=== PATIENT | female | born 1975 | race Caucasian/White ===

== ENCOUNTER 2016-10-18 03:29 | Emergency (ER) | payer MEDICAID, OTHER ==
[~2016-10-18] VITALS: Ht 162.6 cm; Wt 71.5 kg
[2016-10-18 03:37] VITALS: Ht 162.6 cm; Wt 71.5 kg
[2016-10-18] MEDS ORDERED: SOD CHLORIDE 0.9% 1,000 ML IV STA (04:47)
[2016-10-18] MEDS ORDERED: morphine 4 MG/ML VIAL IV STA (04:47)
[2016-10-18] MEDS ORDERED: ONDANSETRON 4 MG INJ IV STA (04:47)
--- NOTE | 2016-10-18 04:59 | ERA ---
ER Documentation Chief Complaint Date/Time DATE: 10/18/16 TIME: 04:50 Chief Complaint epigastric pain since 2 hours ago (GENE HERCULES PA-C) HPI This is a 41-year-old female presenting with 8-10 hours of upper epigastric abdominal pain. Patient does describe one day of constipation. Usual bowel movements as once per day. Denies nausea, vomiting, diarrhea, inability to tolerate p.o., similar symptoms in the past, aggravating/relieving factors, taking medications to relieve the symptoms, personal or family medical history, sick contacts, recent travel, recent surgeries/antibiotic use. Vaccination status is up-to-date. Has no other complaints and describes no other associated manifestations. (GENE HERCULES PA-C) ROS All systems reviewed and are negative except as per history of present illness. (GENE HERCULES PA-C) Medications Home Meds Active Scripts Famotidine* (Pepcid*) 20 Mg Tablet, 20 MG PO BID for 4 Days, TAB Prov:GENE HERCULES PA-C 10/18/16 Reported Medications [None] No Conflict Check 01/12/12 Allergies Allergies: Coded Allergies: No Known Allergy (Unverified , 01/12/12) PMhx/Soc History of Surgery: No Anesthesia Reaction: No Hx Neurological Disorder: No Hx Respiratory Disorders: No Hx Cardiac Disorders: No Hx Miscellaneous Medical Probl: No (NO MEDICAL PROBLEMS ) Hx Alcohol Use: No Hx Substance Use: No Hx Tobacco Use: No Smoking Status: Never smoker (GENE HERCULES PA-C) Physical Exam Vitals (HARSHAL LITTLE PA-C) Physical Exam Const: Healthy-appearing. Well-nourished. Well-developed. No acute distress. Abd: Mild to moderate epigastric tenderness. Negative rovsings, psoas , obturator & murphys signs. No Mcburneys point tenderness. Normal bowl sounds auscultated in all 4 quadrants. No aortic / renal / iliac bruits appreciated. No abnormalities noted upon percussion of liver, spleen, or over the 4 abdominal quadrants. No hepatomegaly, splenomegaly, or enlarged abdominal aorta appreciated upon palpation. Abdomen non-distended and soft with no rebound or guarding. Back: No CVA tenderness. No midline or flank tenderness. Head: Normocephalic, Atraumatic. Eyes: Non-injected; No scleral erythema, discharge or foreign body. EOMI and ARYAN bilaterally. Ears: Normal External Ears, EACs clear, TM normal bilaterally without erythema. Nose: Normal nose without discharge, septal deviation, or sinus tenderness. Oral: No oral edema visualized. Mucous membranes moist and pink. Neck: No cervical lymphadenopathy, masses or goiter palpated. Trachea midline. Supple ~ No meningismus. Pulm: No dyspnea, stridor, tripoding or drooling. Good air movement. Clear to auscultation bilaterally. Cardio: Regular rate and rhythm; No murmurs, gallops or rubs auscultated. No JVD grossly observed. Radial and posterior tibial pulses 2+ bilaterally. Capillary refill less than 2 seconds. MS: Normal motor strength, normal tone with gross examination. Skin: No petechiae or rashes. No ulcer, induration, jaundice. Good turgor. Ext: No cyanosis, edema or palpable cord. Normal movement of all extremities grossly observed. Neur: Awake, alert and oriented x3. Neurovascularly intact bilaterally. Psych: Normal Mood and Affect. (GENE HERCULES PA-C) Results 24 hrs Laboratory Tests Test 10/18/16 05:00 10/18/16 05:01 10/18/16 05:06 Urine Color YELLOW Urine Clarity CLEAR Urine pH 6.0 Urine Specific [place] 1.018 Urine Ketones NEGATIVEmg/dL Urine Nitrite NEGATIVEmg/dL Urine Bilirubin NEGATIVEmg/dL Urine Urobilinogen NEGATIVEmg/dL Urine Leukocyte Esterase NEGATIVELeu/ul Urine Hemoglobin NEGATIVEmg/dL Urine Glucose NEGATIVEmg/dL Urine Total Protein NEGATIVEmg/dl White Blood Count 13.110^3/ul Red Blood Count 4.8410^6/ul Hemoglobin 14.2g/dl Hematocrit 43.2% Mean Corpuscular Volume 89.3fl Mean Corpuscular Hemoglobin 29.3pg Mean Corpuscular Hemoglobin Concent 32.9g/dl Red Cell Distribution Width 12.0% Platelet Count 20630^3/UL Mean Platelet Volume 11.5fl Neutrophils % 72.2% Lymphocytes % 18.5% Monocytes % 7.2% Eosinophils % 0.8% Basophils % 0.5% Nucleated Red Blood Cells % 0.0/100WBC Neutrophils # 9.510^3/ul Lymphocytes # 2.410^3/ul Monocytes # 1.010^3/ul Eosinophils # 0.110^3/ul Basophils # 0.110^3/ul Nucleated Red Blood Cells # 0.010^3/ul Prothrombin Time 11.7Sec Prothrombin Time Ratio 0.9 INR International Normalized Ratio 0.86 Activated Partial Thromboplast Time 29.7Sec Sodium Level 142mmol/L Potassium Level 4.3mmol/L Chloride Level 99mmol/L Carbon Dioxide Level 28mmol/L Anion Gap 19 Blood Urea Nitrogen 12mg/dl Creatinine 0.58mg/dl Glucose Level 94mg/dl Calcium Level 9.2mg/dl Total Bilirubin 0.1mg/dl Direct Bilirubin 0.00mg/dl Indirect Bilirubin 0.1mg/dl Aspartate Amino Transf (AST/SGOT) 44IU/L Alanine Aminotransferase (ALT/SGPT) 69IU/L Alkaline Phosphatase 132IU/L Total Protein 8.7g/dl Albumin 4.6g/dl Globulin 4.10g/dl Albumin/Globulin Ratio 1.12 Lipase 172U/L Bedside Urine pH (LAB) 7.0 Bedside Urine Protein (LAB) 1+ Bedside Urine Glucose (UA) Negative Bedside Urine Ketones (LAB) Negative Bedside Urine Blood Trace-intact Bedside Urine Nitrite (LAB) Negative Bedside Urine Leukocyte Esterase (L Negative Current Medications Medications (Trade) Dose Ordered Sig/Tim Route PRN Reason Start Time Stop Time Status Last Admin Dose Admin Sodium Chloride (NS) 1,000 ml @ 1,000 mls/hr Q1H STAT IV 10/18/16 04:47 10/18/16 05:46 DC 10/18/16 05:05 Morphine Sulfate (morphine) 4 mg ONCE STAT IV 10/18/16 04:47 10/18/16 04:50 DC 10/18/16 05:05 Ondansetron HCl (Zofran Inj) 4 mg ONCE STAT IV 10/18/16 04:47 10/18/16 04:50 DC 10/18/16 05:04 (HARSHAL LITTLE PA-C) Results 24 hrs Laboratory Tests Test 10/18/16 05:00 10/18/16 05:01 10/18/16 05:06 Urine Color YELLOW Urine Clarity CLEAR Urine pH 6.0 Urine Specific [place] 1.018 Urine Ketones NEGATIVEmg/dL Urine Nitrite NEGATIVEmg/dL Urine Bilirubin NEGATIVEmg/dL Urine Urobilinogen NEGATIVEmg/dL Urine Leukocyte Esterase NEGATIVELeu/ul Urine Hemoglobin NEGATIVEmg/dL Urine Glucose NEGATIVEmg/dL Urine Total Protein NEGATIVEmg/dl White Blood Count 13.110^3/ul Red Blood Count 4.8410^6/ul Hemoglobin 14.2g/dl Hematocrit 43.2% Mean Corpuscular Volume 89.3fl Mean Corpuscular Hemoglobin 29.3pg Mean Corpuscular Hemoglobin Concent 32.9g/dl Red Cell Distribution Width 12.0% Platelet Count 96440^3/UL Mean Platelet Volume 11.5fl Neutrophils % 72.2% Lymphocytes % 18.5% Monocytes % 7.2% Eosinophils % 0.8% Basophils % 0.5% Nucleated Red Blood Cells % 0.0/100WBC Neutrophils # 9.510^3/ul Lymphocytes # 2.410^3/ul Monocytes # 1.010^3/ul Eosinophils # 0.110^3/ul Basophils # 0.110^3/ul Nucleated Red Blood Cells # 0.010^3/ul Bedside Urine pH (LAB) 7.0 Bedside Urine Protein (LAB) 1+ Bedside Urine Glucose (UA) Negative Bedside Urine Ketones (LAB) Negative Bedside Urine Blood Trace-intact Bedside Urine Nitrite (LAB) Negative Bedside Urine Leukocyte Esterase (L Negative Current Medications Medications (Trade) Dose Ordered Sig/Tim Route PRN Reason Start Time Stop Time Status Last Admin Dose Admin Sodium Chloride (NS) 1,000 ml @ 1,000 mls/hr Q1H STAT IV 10/18/16 04:47 10/18/16 05:46 DC 10/18/16 05:05 Morphine Sulfate (morphine) 4 mg ONCE STAT IV 10/18/16 04:47 10/18/16 04:50 DC 10/18/16 05:05 Ondansetron HCl (Zofran Inj) 4 mg ONCE STAT IV 10/18/16 04:47 10/18/16 04:50 DC 10/18/16 05:04 (GENE HERCULES PA-C) Procedures/MDM 41-year-old overweight female with no past medical history being evaluated and worked up for epigastric abdominal discomfort as described in history and physical examination. Patient was given morphine 4 mg IV and Zofran 4 mg IV with relief of symptoms. The workup included CBC, CMP, urinalysis, urine , PT, PTT, and lipase. The current most likely diagnosis is epigastric pain of unknown etiology versus gastritis. The treatment plan will thus include outpatient Pepcid with close follow-up in the next 8-12 hours. At this time I do not suspect acute pancreatitis, cholangitis, myocardial/ Intestinal ischemia, pneumonia, hernia, or esophageal rupture. (GENE HERCULES PA-C) Medical decision making: This 41-year-old female presents with epigastric abdominal pain, patient has been evaluated for the same pain in 2010 and she reports that her pain is similar. I suspect gastritis, GERD versus ulcer disease. Patient's care was signed out to me by Gene Hercules PA-C. At this point patient's pain has been under control, she is feeling much better at this time. Her labs are unremarkable, there is a mild elevated white blood cell count at 13, LFTs, lipase, all normal. Patient will be given a prescription, as prescribed by [facility], Pepcid. No evidence of pancreatitis, dissection, acute coronary syndrome, acute hepatobiliary process, appendicitis, ovarian torsion, kidney stones, septic stones, UTI. (HARSHAL LITTLE PA-C) Departure Diagnosis: Primary Impression: Epigastric pain Condition: GENE Alvarez PA-C Oct 18, 2016 04:59 HARSHAL LITTLE PA-C Oct 18, 2016 09:31 pancreatitis, dissection, acute coronary syndrome, acute hepatobiliary process, appendicitis, ovarian torsion, kidney stones, septic stones, UTI. (HARSHAL LITTLE PA-C) Departure Diagnosis: Primary Impression: Epigastric pain Condition: GENE Alvarez PA-C Oct 18, 2016 04:59 HARSHAL LITTLE PA-C Oct 18, 2016 09:31
[2016-10-18 05:00] LABS: URINE BLOOD (Dip) POC Trace-intact (NEGATIVE)
[2016-10-18 06:01] LABS: BASOPHIL # 0.1 10^3/ul (0.0-0.1); BASOPHILS % 0.5 % (0.0-2.0); EOSINOPHILS # 0.1 10^3/ul (0.0-0.5); EOSINOPHILS % 0.8 % (0.0-7.0); HEMATOCRIT 43.2 % (37.0-47.0); HEMOGLOBIN 14.2 g/dl (12.0-16.0); LYMPHOCYTES # 2.4 10^3/ul (0.8-2.9); LYMPHOCYTES % 18.5 % (15.0-51.0); MEAN CORPUSCULAR HEMOGLOBIN 29.3 pg (29.0-33.0); MEAN CORPUSCULAR HGB CONC 32.9 g/dl (32.0-37.0); MEAN CORPUSCULAR VOLUME 89.3 fl (82.0-101.0); MEAN PLATELET VOLUME 11.5 fl (7.4-10.4); MONOCYTES % 7.2 % (0.0-11.0); NEUTROPHIL # 9.5 10^3/ul (1.6-7.5); NEUTROPHILS % 72.2 % (39.0-77.0); PLATELET COUNT 353 10^3/UL (140-415); RED BLOOD COUNT 4.84 10^6/ul (4.20-5.40); WHITE BLOOD COUNT 13.1 10^3/ul (4.8-10.8)
[2016-10-18 06:17] LABS: ADD UMIC NO; UR ASCORBIC ACID NEGATIVE (NEGATIVE); UR BILIRUBIN (Dip) NEGATIVE (NEGATIVE); UR BLOOD (Dip) NEGATIVE (NEGATIVE); UR CLARITY CLEAR (CLEAR); UR COLOR YELLOW (YELLOW); UR GLUCOSE (Dip) NEGATIVE (NEGATIVE); UR KETONES (Dip) NEGATIVE (NEGATIVE); UR LEUKOCYTE ESTERASE (Dip) NEGATIVE Leu/ul (NEGATIVE); UR NITRITE (Dip) NEGATIVE (NEGATIVE); UR SPECIFIC GRAVITY (Dip) 1.018 (1.003-1.030); UR TOTAL PROTEIN (Dip) NEGATIVE (NEGATIVE); UR UROBILINOGEN (Dip) NEGATIVE (NEGATIVE)
[2016-10-18] MEDS ORDERED: FAMO-96 PO (06:28)
[2016-10-18 06:42] LABS: INR 0.86; PROTIME 11.7 Sec (12.2-14.2); PT RATIO 0.9
[2016-10-18 06:43] LABS: PARTIAL THROMBOPLASTIN TIME 29.7 Sec (25.0-35.0)
[2016-10-18 07:03] LABS: ALBUMIN 4.6 g/dl (3.3-4.9); ALBUMIN/GLOBULIN RATIO 1.12; BILIRUBIN,INDIRECT 0.1 mg/dl (0-1.1); BILIRUBIN,TOTAL 0.1 mg/dl (0.2-1.3); CALCIUM 9.2 mg/dl (8.4-10.2); CREATININE 0.58 mg/dl (0.44-1.00); POTASSIUM 4.3 mmol/L (3.5-5.1); TOTAL PROTEIN 8.7 g/dl (6.1-8.1)
[2016-10-18 07:40] VITALS: BP 131/75; PULSE 64; RESP 18; TEMP 98.4
[2016-10-25 16:13] LABS: URINE BLOOD (Dip) POC Trace-intact (NEGATIVE)
== END 2016-10-18 07:40 | disposition home or self-care (01) ==
LOC: E/R 03:29 → FTE 07:40
DX: R10.13 Epigastric pain (principal)
CPT/HCPCS: 36415; 80053; 81003; 83690; 85025; 85610; 85730; 96374; 96375; J2270; J2405; J7030; Z7502

== ENCOUNTER 2017-01-03 11:27 | Emergency (ER) | END 2017-01-03 14:09 | disposition home or self-care (01) | DX: R10.30 Lower abdominal pain, unspecified (principal) | CPT/HCPCS: 36415; 74176; 80053; 81001; 83690; 85025; Z7502; Z7610 ==

== ENCOUNTER 2017-01-17 14:28 | Emergency (ER) | payer OTHER ==
[~2017-01-17] VITALS: Ht 157.5 cm; Wt 58.0 kg
[~2017-01-17 14:28] MED LIST: DOCU-144 PO; FAMO-96 PO; NAPR-260 PO; POLY17PO6 PO
[2017-01-17 14:33] VITALS: Ht 157.5 cm; Wt 58.0 kg
[2017-01-17] MEDS ORDERED: KETOROLAC 15 MG INJ IV STA (16:34)
[2017-01-17] MEDS ORDERED: SOD CHLORIDE 0.9% 1,000 ML IV STA (16:34)
[2017-01-17] MEDS ORDERED: ONDANSETRON 4 MG INJ IV STA (16:34)
--- NOTE | 2017-01-17 16:34 | ERD ---
ER Documentation Chief Complaint Chief Complaint pt bib family with c/o right sided abd pain and bloatingx 2 days, HX gallst HPI right sided ABD and flank pain with dysuria and bloating x 3 days , denies n/v/ f/c/ no change in appetite ROS All systems reviewed and are negative except as per history of present illness. Medications Home Meds Active Scripts Polyethylene Glycol* (Miralax*) 17 Gm Powd.pack, 17 GM PO DAILY, #14 Prov:DIMPLE JHAVERI PA-C 01/03/17 Docusate Sodium* (Colace*) 100 Mg Capsule, 100 MG PO TID, #30 CAP Prov:DIMPLE JHAVERI PA-C 01/03/17 Naproxen* (Naprosyn*) 500 Mg Tablet, 500 MG PO BID Y for PAIN AND/OR INFLAMMATION, #30 TAB Prov:DIMPLE JHAVERI PA-C 01/03/17 Famotidine* (Pepcid*) 20 Mg Tablet, 20 MG PO BID for 4 Days, TAB Prov:JOSE L EL PA-C 10/18/16 Reported Medications [None] No Conflict Check 01/12/12 Allergies Allergies: Coded Allergies: No Known Allergy (Unverified , 01/12/12) PMhx/Soc Medical and Surgical Hx: pt denies Medical Hx History of Surgery: Yes (fibroma removal, x1) Anesthesia Reaction: No Hx Neurological Disorder: No Hx Respiratory Disorders: No Hx Cardiac Disorders: No Hx Miscellaneous Medical Probl: No (NO MEDICAL PROBLEMS, cholelithisis) Hx Alcohol Use: No Hx Substance Use: No Hx Tobacco Use: No Smoking Status: Never smoker Physical Exam Vitals Vital Signs Date Time Temp Pulse Resp B/P Pulse Ox O2 Delivery O2 Flow Rate FiO2 01/17/17 14:33 98.3 66 16 149/75 99 Physical Exam Const: Well-nourished, well-appearing, well-hydrated 41-year-old female in no acute distress Head: Eyes: Normal Conjunctiva, PERRLA, EOMI ENT: Neck: Resp: Respirations even and unlabored ,clear to auscultation bilaterally, no rales wheezes or rhonchi Cardio: Regular rate and rhythm, no murmurs Abd: Soft, nondistended, palpable right upper quadrant tenderness, no Wilder sign, no McBurney's point tenderness, right CVA tenderness Skin: No petechiae or rashes Back: Ext: Neur: Awake and alert Psych: Normal Mood and Affect Result Diagram: 01/17/17169901/17/17 170 Results 24 hrs Laboratory Tests Test 01/17/17 17:00 White Blood Count 11.710^3/ul Red Blood Count 4.7610^6/ul Hemoglobin 14.1g/dl Hematocrit 42.3% Mean Corpuscular Volume 88.9fl Mean Corpuscular Hemoglobin 29.6pg Mean Corpuscular Hemoglobin Concent 33.3g/dl Red Cell Distribution Width 11.9% Platelet Count 18963^3/UL Mean Platelet Volume 10.9fl Neutrophils % 61.9% Lymphocytes % 28.9% Monocytes % 6.3% Eosinophils % 2.3% Basophils % 0.3% Nucleated Red Blood Cells % 0.0/100WBC Neutrophils # 7.310^3/ul Lymphocytes # 3.410^3/ul Monocytes # 0.710^3/ul Eosinophils # 0.310^3/ul Basophils # 0.010^3/ul Nucleated Red Blood Cells # 0.010^3/ul Urine Color YELLOW Urine Clarity SLIGHTLY CLOUDY Urine pH 5.0 Urine Specific [place] 1.018 Urine Ketones NEGATIVEmg/dL Urine Nitrite NEGATIVEmg/dL Urine Bilirubin NEGATIVEmg/dL Urine Urobilinogen NEGATIVEmg/dL Urine Leukocyte Esterase TRACELeu/ul Urine Microscopic RBC 3/HPF Urine Microscopic WBC 6/HPF Urine Squamous Epithelial Cells FEW/HPF Urine Bacteria FEW/HPF Urine Mucus FEW/HPF Urine Hemoglobin 2+mg/dL Urine Glucose NEGATIVEmg/dL Urine Total Protein 1+mg/dl Sodium Level 142mmol/L Potassium Level 3.9mmol/L Chloride Level 101mmol/L Carbon Dioxide Level 29mmol/L Anion Gap 16 Blood Urea Nitrogen 14mg/dl Creatinine 0.61mg/dl Glucose Level 91mg/dl Calcium Level 9.2mg/dl Total Bilirubin 0.2mg/dl Direct Bilirubin 0.00mg/dl Indirect Bilirubin 0.2mg/dl Aspartate Amino Transf (AST/SGOT) 69IU/L Alanine Aminotransferase (ALT/SGPT) 101IU/L Alkaline Phosphatase 131IU/L Total Protein 8.7g/dl Albumin 4.7g/dl Globulin 4.00g/dl Albumin/Globulin Ratio 1.17 Lipase 147U/L Current Medications Medications (Trade) Dose Ordered Sig/Tmi Route PRN Reason Start Time Stop Time Status Last Admin Dose Admin Sodium Chloride (NS) 1,000 ml @ 1,000 mls/hr Q1H STAT IV 01/17/17 16:34 01/17/17 17:33 DC 01/17/17 16:59 Ondansetron HCl (Zofran Inj) 4 mg ONCE STAT IV 01/17/17 16:34 01/17/17 16:36 DC Ketorolac Tromethamine (Toradol) 15 mg ONCE STAT IV 01/17/17 16:34 01/17/17 16:36 DC 01/17/17 16:58 Pantoprazole (Protonix Iv) 40 mg ONCE ONCE IV 01/17/17 17:00 01/17/17 17:01 DC 01/17/17 16:58 Interpretation text CBC shows no evidence of hemorrhage WBCs slightly elevated at 11.7 this is sub- clinical finding Chemistry shows no evidence of significant electrolyte abnormalities or renal insufficiency Liver function tests shows no evidence of acute biliary or hepatic dysfunction Lipase shows no evidence of acute pancreatitis Procedures/MDM PROCEDURE: CT abdomen and pelvis without contrast. CLINICAL INDICATION: Abdominal pain. TECHNIQUE: CT scan of the abdomen and pelvis without contrast was performed on a multi-slice CT scanner . Sagittal and coronal reformatted images were obtained from the axial source images. One or more of the following dose reduction techniques were used: - Automated exposure control. - Adjustment of the mA and/or kV according to patient size. - Use of iterative reconstruction technique. DLP 605.9 mGycm. CTDIvol 10.9 mGy COMPARISON: 01/03/2017 FINDINGS: The lung bases are clear. There is limited evaluation of the solid viscera from the lack of IV contrast. The kidneys are symmetric bilaterally with no evidence of renal or ureteral calculi. There is no hydronephrosis or perinephric stranding. There is hepatomegaly and prominent fatty infiltration of the liver with no gross focal lesion or biliary ductal dilatation. The gallbladder has multiple gallstones without surrounding visible inflammatory changes. The spleen is unremarkable without mass. The adrenal glands are within normal limits without mass. The pancreas is unremarkable without focal lesion or surrounding inflammatory changes. There is no bowel obstruction or focal bowel inflammation. The appendix is unremarkable. There is a partially fecal filled colon. There is prominent diverticulosis throughout without visible focal diverticulitis. There is no free air or free fluid. There are no enlarged lymph nodes. The aorta is unremarkable and there is no acute osseous abnormality. Degenerative changes are seen in the lumbar spine. The uterus and right ovary are grossly unremarkable. There is a left ovarian cyst that measures 3.8 cm. IMPRESSION: No evidence of renal or ureteral calculi or hydronephrosis. No evidence of bowel obstruction or visible focal inflammation. There is no appendicitis. There is a mildly fecal filled colon. There is prominent descending colon and sigmoid diverticulosis without diverticulitis. Hepatomegaly and prominent fatty infiltration of the liver. Cholelithiasis. No CT evidence for cholecystitis. Electronically viewed and signed by .Ky Bradshaw MD, on 01/17/2017 17:46 41-year-old female presents to emergency department for abdominal pain. Pain is on the right side localized on the right upper quadrant and right flank. Emergency room course includes history and physical exam, patient appears stable , no nausea, or vomiting, reproducible right upper quadrant pain, no McBurney's point tenderness. Serology obtained, no evidence of hemorrhage, WBCs subclinical finding. No electrolyte dysfunction, or renal insufficiency, no hepatitis, or pancreatitis, urinalysis positive for trace leukocytosis without nitrates or hematuria, CAT scan positive for hepatomegaly, and prominent fatty infiltrate of the liver with no gross focal lesion or biliary duct dilation. No evidence of uterine calculi or hydronephrosis, no evidence of bowel obstruction or visible focal inflammation. There is no appendicitis, there is a mild fecal filled colon, there is prominent descending colon and sigmoid colon diverticulosis without diverticulitis, gallbladder has multiple gallstones without surrounding visible inflammation. Spleen is unremarkable without mass. Plan to treat leukocytes with Keflex 100 mg 1 tab p.o. 3 times daily 7 days, patient given 7 [place] 5/325 for severe pain, Naprosyn 500 mg 1 tab p.o. twice daily for 10 days, Pepcid 20 mg p.o. twice daily 10 days. We will up with primary care physician within the next 10 days for treatment reevaluation, surgical options, return to emergency department for worsening of symptoms, pain, nausea, vomiting, fever. Patient is stable with no new complaints during ER course, clinically there is no current evidence to suggest meningitis, sepsis, acute abdomen, acute coronary syndromes, pulmonary embolism or any other emergent condition appearing to require further evaluation or hospitalization. I feel the patient is stable for discharge at this time. I have discussed results, examination findings, the treatment plan with the patient and family present prior to discharge. Indications for emergent reevaluation, side effects of medication were also discussed. All questions were answered. Patient verbalizes understanding and agrees with plan of care. Departure Diagnosis: Primary Impression: Cholelithiasis Cholelithiasis location: gallbladder Cholecystitis presence: without cholecystitis Biliary obstruction: without biliary obstruction Qualified Code : K80.20 - Calculus of gallbladder without cholecystitis without obstruction Additional Impression: Fatty liver Patient Instructions: Gallstones, Non-Alcoholic Fatty Liver Disease (NAFLD) [facility] Additional Instructions: Thank you for for coming to [facility] for your care today. Please ask your nurse or provider if you have questions about your care today and do not leave until all your questions have been answered. Please use any medications given as directed and follow-up with your doctor (or the doctor you were referred to) in the next 2-3 days. If you do not have a primary care doctor you may follow up at the [facility] (listed below). You may also use motrin and tylenol as needed for fever and/or pain unless instructed otherwise by your provider or nurse. Indications for more urgent follow-up have been discussed, but you may return to the Emergency Department at ANY time for any worrisome or worsening symptoms. If you have abdominal pain, please know that no test or exam you received is perfect and you should follow up within 8 hours for continued pain. If you had any imaging studies today, such as an X-Ray or CT Scan, these studies will be reviewed later by a radiologist. You will be called if there are important findings that were not identified today, so make sure the contact information you provided at registration is correct. If you received any narcotic pain control medicine today, such as Vicodin, Morphine or Dilaudid, your coordination and judgment may be affected for a number of hours. Please do not drive or operate heavy machinery, and you may want someone to assist you at home. If you were given a prescription for narcotic medication, be aware that it is very addictive- use sparingly and only if necessary. RONEY BARNES Jan 17, 2017 16:34
[2017-01-17] MEDS ORDERED: PANTOPRAZOLE 40 MG INJ IV ONE (17:00)
[2017-01-17 17:11] LABS: BASOPHILS % 0.3 % (0.0-2.0); EOSINOPHILS # 0.3 10^3/ul (0.0-0.5); EOSINOPHILS % 2.3 % (0.0-7.0); HEMATOCRIT 42.3 % (37.0-47.0); HEMOGLOBIN 14.1 g/dl (12.0-16.0); LYMPHOCYTES # 3.4 10^3/ul (0.8-2.9); LYMPHOCYTES % 28.9 % (15.0-51.0); MEAN CORPUSCULAR HEMOGLOBIN 29.6 pg (29.0-33.0); MEAN CORPUSCULAR HGB CONC 33.3 g/dl (32.0-37.0); MEAN CORPUSCULAR VOLUME 88.9 fl (82.0-101.0); MEAN PLATELET VOLUME 10.9 fl (7.4-10.4); MONOCYTE # 0.7 10^3/ul (0.3-0.9); MONOCYTES % 6.3 % (0.0-11.0); NEUTROPHIL # 7.3 10^3/ul (1.6-7.5); NEUTROPHILS % 61.9 % (39.0-77.0); PLATELET COUNT 350 10^3/UL (140-415); RED BLOOD COUNT 4.76 10^6/ul (4.20-5.40); RED CELL DISTRIBUTION WIDTH 11.9 % (11.5-14.5); WHITE BLOOD COUNT 11.7 10^3/ul (4.8-10.8)
[2017-01-17 17:18] LABS: ADD UMIC YES; UR ASCORBIC ACID NEGATIVE (NEGATIVE); UR BACTERIA FEW /HPF (NONE SEEN); UR BILIRUBIN (Dip) NEGATIVE (NEGATIVE); UR BLOOD (Dip) 2+ mg/dL (NEGATIVE); UR CLARITY SLIGHTLY CLOUDY (CLEAR); UR COLOR YELLOW (YELLOW); UR GLUCOSE (Dip) NEGATIVE (NEGATIVE); UR KETONES (Dip) NEGATIVE (NEGATIVE); UR LEUKOCYTE ESTERASE (Dip) TRACE Leu/ul (NEGATIVE); UR MUCUS FEW /HPF (NONE SEEN); UR NITRITE (Dip) NEGATIVE (NEGATIVE); UR RBC 3 /HPF (0-5); UR SPECIFIC GRAVITY (Dip) 1.018 (1.003-1.030); UR SQUAMOUS EPITHELIAL CELL FEW /HPF (FEW); UR TOTAL PROTEIN (Dip) 1+ mg/dl (NEGATIVE); UR UROBILINOGEN (Dip) NEGATIVE (NEGATIVE)
[2017-01-17 17:32] LABS: ALBUMIN 4.7 g/dl (3.3-4.9); ALBUMIN/GLOBULIN RATIO 1.17; BILIRUBIN,INDIRECT 0.2 mg/dl (0-1.1); BILIRUBIN,TOTAL 0.2 mg/dl (0.2-1.3); CALCIUM 9.2 mg/dl (8.4-10.2); CREATININE 0.61 mg/dl (0.44-1.00); POTASSIUM 3.9 mmol/L (3.5-5.1); TOTAL PROTEIN 8.7 g/dl (6.1-8.1)
--- NOTE | 2017-01-17 17:46 | RADRPT ---
PROCEDURE: CT abdomen and pelvis without contrast. CLINICAL INDICATION: Abdominal pain. TECHNIQUE: CT scan of the abdomen and pelvis without contrast was performed on a multi-slice CT [facility] . Sagittal and coronal reformatted images were obtained from the axial source images. One or more of the following dose reduction techniques were used: - Automated exposure control. - Adjustment of the mA and/or kV according to patient size. - Use of iterative reconstruction technique. DLP 605.9 mGycm. CTDIvol 10.9 mGy COMPARISON: 01/03/2017 FINDINGS: The lung bases are clear. There is limited evaluation of the solid viscera from the lack of IV contr ast. The kidneys are symmetric bilaterally with no evidence of renal or ureteral calculi. There is no hyd ronephrosis or perinephric stranding. There is hepatomegaly and prominent fatty infiltration of the liver with no gross focal lesion or bi liary ductal dilatation. The gallbladder has multiple gallstones without surrounding visible inflamm atory changes. The spleen is unremarkable without mass. The adrenal glands are within normal limits without mass. The pancreas is unremarkable without focal lesion or surrounding inflammatory changes. There is no bowel obstruction or focal bowel inflammation. The appendix is unremarkable. There is a partially fecal filled colon. There is prominent diverticulosis throughout without visible focal div erticulitis. There is no free air or free fluid. There are no enlarged lymph nodes. The aorta is unremarkable and there is no acute osseous abnormality. Degenerative changes are seen i n the lumbar spine. The uterus and right ovary are grossly unremarkable. There is a left ovarian cyst that measures 3.8 cm. IMPRESSION: No evidence of renal or ureteral calculi or hydronephrosis. No evidence of bowel obstruction or visible focal inflammation. There is no appendicitis. There is a mildly fecal filled colon. There is prominent descending colon and sigmoid diverticulosis without d iverticulitis. Hepatomegaly and prominent fatty infiltration of the liver. Cholelithiasis. No CT evidence for cholecystitis. RPTAT: AA .Ky Bradshaw MD, Date Time Electronically viewed and signed by .Ky Bradshaw MD, MD on 01/17/2017 17:46 .J/
[2017-01-17] MEDS ORDERED: CEPH-443 PO (19:00)
[2017-01-17] MEDS ORDERED: NAPR-260 PO (19:01)
[2017-01-17] MEDS ORDERED: FAMO-96 PO (19:01)
[2017-01-17 19:19] VITALS: BP_SYST 147; PULSE 69; RESP 20; TEMP 98.6
== END 2017-01-17 19:18 | disposition home or self-care (01) ==
LOC: FTE 14:28
DX: K80.20 Calculus of gallbladder without cholecystitis without obstruction (principal); K76.0 Fatty (change of) liver, not elsewhere classified
CPT/HCPCS: 36415; 74176; 80053; 81001; 83690; 85025; 96374; 96375; C9113; J1885; J7030; Z7502